=== PATIENT | female | born 2005 | race Caucasian/White ===

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

== ENCOUNTER → 2025-03-24 14:37 | Outpatient (BNVA) | payer BC, MEDICAID, SELFPAY | PROVIDERS: PCP Family Medicine; Visit Provider Clinical Nurse Specialist Adult Health | DX: N39.0 Urinary tract infection, site not specified (principal); Z91.89 Other specified personal risk factors, not elsewhere classified; N30.20 Other chronic cystitis without hematuria | CPT/HCPCS: 81000; 86592; 86705; 86706; 86709; 86803; 87086; 87340; 87491; 87591; 87661; 87806 ==